=== PATIENT | female | born 1945 | race Caucasian/White ===

== ENCOUNTER → 2017-06-20 09:19 | Outpatient (CLI) | payer MEDICARE, OTHER ==
[2015-11-23 12:44] VITALS: BMI 19.1
[~2017-06-20 09:19] MED LIST: HYDROCODON-ACE1 EAC7 PO; XANAX0.25 MG PO
== END | disposition home or self-care (01) ==
LOC: D.MAMMO 09:19
DX: Z12.31 Encounter for screening mammogram for malignant neoplasm of breast (principal)

== ENCOUNTER 2017-07-06 09:53 | Outpatient (CLI) | payer MEDICARE, OTHER ==
[~2017-07-06] VITALS: Ht 160 cm; Wt 49.1 kg
[2017-07-06 11:13] VITALS: BP 133/79; Ht 160 cm; Wt 49.1 kg
== END 2017-07-06 11:29 | disposition home or self-care (01) ==
LOC: D.OPS 09:53
DX: M81.0 Age-related osteoporosis without current pathological fracture (principal)

== ENCOUNTER → 2017-07-12 14:10 | Outpatient (CLI) | payer MEDICARE, OTHER ==
[2017-07-06 11:13] VITALS: BMI 19.1
== END | disposition home or self-care (01) ==
LOC: D.MAMMO 09:30
DX: N63 Unspecified lump in breast (principal)

== ENCOUNTER 2018-01-09 09:37 | Outpatient (CLI) | payer MEDICARE, OTHER ==
[~2018-01-09] VITALS: Ht 160 cm; Wt 49.1 kg
[2018-01-09 10:00] VITALS: Ht 160 cm; Wt 49.1 kg
== END 2018-01-09 10:17 | disposition home or self-care (01) ==
LOC: D.OPS 09:37
DX: M81.0 Age-related osteoporosis without current pathological fracture (principal)

== ENCOUNTER 2018-05-06 08:59 | Observation (INO) | payer MEDICARE, OTHER ==
[~2018-05-06] VITALS: Ht 160 cm; Wt 49.0 kg
[2018-05-06 09:27] LABS: BASOPHILS 0.4 % (0-2); EOSINOPHILS 1.7 % (0-7); HEMATOCRIT 40.7 % (36.0-48.0); HEMOGLOBIN 13.4 g/dL (12-16); IMMATURE GRANULOCYTES 0.3 % (0-5); LYMPHOCYTES 23.9 % (15-50); MCH 32.9 pg (26.0-34.0); MCHC 32.9 g/dL (31.0-37.0); MEAN PLATELET VOLUME 10.3 fL (7.4-10.4); MONOCYTES 7.5 % (2-11); NEUTROPHILS 66.2 % (40-80); PLATELET COUNT 266 10x3/uL (130-400); RBC 4.07 10x6/uL (4.00-5.40); RDW 13.9 % (11.5-14.5)
[2018-05-06 09:40] LABS: ALBUMIN 3.7 g/dL (3.4-5.0); ANION GAP 12.3 mmol/L (8-16); BILIRUBIN - TOTAL 0.28 mg/dL (0.2-1.3); CALCIUM 8.9 mg/dL (8.5-10.1); CARBON DIOXIDE 30.6 mmol/L (21.0-32.0); CREATININE - SERUM 0.9 mg/dL (0.6-1.3); POTASSIUM - SERUM 3.9 mmol/L (3.5-5.1); PROTEIN - SERUM 7.7 g/dL (6.4-8.2)
[2018-05-06 09:44] LABS: APPEARANCE CLEAR (CLEAR); BILIRUBIN NEGATIVE (NEGATIVE); COLOR YELLOW (YELLOW); GLUCOSE NEGATIVE (NEGATIVE); KETONE NEGATIVE (NEGATIVE); NITRITE NEGATIVE (NEGATIVE); PROTEIN NEGATIVE (NEGATIVE); UROBILINOGEN NORMAL (NORMAL)
[2018-05-06 11:00] VITALS: BP 141/78
[2018-05-06 12:49] VITALS: BP 143/78
[2018-05-06 13:56] VITALS: BP 132/49; BMI 19.1
[2018-05-06 17:13] VITALS: BP 132/49
[2018-05-06 22:51] VITALS: BP 99/36
[2018-05-07 05:19] VITALS: BP 116/49
[2018-05-07 06:49] LABS: ALKALINE PHOSPHATASE 80 U/L (46-116); ALT (SGPT) 30 U/L (10-68); BILIRUBIN - TOTAL 0.31 mg/dL (0.2-1.3); CALC OSMOLALITY 281 mosm/kg (275-300); CARBON DIOXIDE 23.6 mmol/L (21.0-32.0); CHLORIDE - SERUM 112 mmol/L (98-107); CREATININE - SERUM 0.8 mg/dL (0.6-1.3); GLUCOSE 79 mg/dL (74-106); LIPASE 183 U/L (73-393); POTASSIUM - SERUM 3.7 mmol/L (3.5-5.1); SODIUM 143 mmol/L (136-145); UREA NITROGEN 6 mg/dL (7-18); eGFR NON AFRICAN AMERICAN 75 mL/min (90-120)
[2018-05-07 06:50] LABS: ALBUMIN 2.6 g/dL (3.4-5.0); AMYLASE - SERUM 75 U/L (25-115); PROTEIN - SERUM 5.3 g/dL (6.4-8.2)
[2018-05-07 08:36] VITALS: BP 147/57
[2018-05-07 09:33] LABS: BASOPHILS 0.6 % (0-2); EOSINOPHILS 2.8 % (0-7); IMMATURE GRANULOCYTES 0.3 % (0-5); LYMPHOCYTES 36.5 % (15-50); MCH 32.4 pg (26.0-34.0); MCHC 32.1 g/dL (31.0-37.0); MCV 100.9 fL (80.0-100.0); MEAN PLATELET VOLUME 10.7 fL (7.4-10.4); MONOCYTES 9.2 % (2-11); NEUTROPHILS 50.6 % (40-80); RDW 13.9 % (11.5-14.5)
[2018-05-07 09:37] LABS: HEMATOCRIT 32.1 % (36.0-48.0); PLATELET COUNT 198 10x3/uL (130-400); RBC 3.18 10x6/uL (4.00-5.40); WBC 7.2 10x3/uL (4.8-10.8)
[2018-05-07 09:38] LABS: HEMOGLOBIN 10.3 g/dL (12-16)
[2018-05-07 09:41] LABS: CHOL - HDL RATIO 5.1 ratio (2.3-4.1); LDL-HDL RATIO 3.4 ratio (1.5-3.5)
[2018-05-07 10:29] VITALS: Ht 160 cm; Wt 49.0 kg
[2018-05-07 12:24] VITALS: BP 119/50
[2018-05-07] MEDS ORDERED: ZOFRAN ODT4 MG/UDTAB PO (12:59)
[2018-05-07 16:14] VITALS: BP 123/40
== END 2018-05-07 18:59 | disposition home or self-care (01) ==
LOC: D.ER 08:59 → D.EDHOLD 11:51 → D.MS 11:51 → OBSVTIME 11:52 → D.MS 13:36
PROVIDERS: Family Medicine
DX: K85.90 Acute pancreatitis without necrosis or infection, unspecified (principal); F41.9 Anxiety disorder, unspecified; Z85.828 Personal history of other malignant neoplasm of skin; E86.0 Dehydration; R10.9 Unspecified abdominal pain; F17.203 Nicotine dependence unspecified, with withdrawal

== ENCOUNTER 2018-07-19 11:18 | Outpatient (CLI) | payer MEDICARE, OTHER ==
[~2018-07-19] VITALS: Ht 160 cm; Wt 50.0 kg
[~2018-07-19 11:18] MED LIST changes: +ZOFRAN ODT4 MG/UDTAB PO
[2018-07-19 12:25] VITALS: BP 110/68; Ht 160 cm; Wt 50.0 kg
== END 2018-07-19 12:15 | disposition home or self-care (01) ==
LOC: D.OPS 11:18
DX: M81.0 Age-related osteoporosis without current pathological fracture (principal); Z01.812 Encounter for preprocedural laboratory examination

== ENCOUNTER 2019-04-09 13:23 | Inpatient (IN) | payer MEDICARE, OTHER ==
[~2019-04-09] VITALS: Ht 160 cm; Wt 47.2 kg
[2019-04-09] MEDS ORDERED: CALCIUM 250+D T1 TAB PO (13:45)
[2019-04-09 13:46] VITALS: BMI 18.4
[2019-04-09 14:17] LABS: BASOPHILS 0.4 % (0-2); EOSINOPHILS 2.2 % (0-7); HEMATOCRIT 38.3 % (36.0-48.0); HEMOGLOBIN 12.8 g/dL (12-16); IMMATURE GRANULOCYTES 0.4 % (0-5); LYMPHOCYTES 23.2 % (15-50); MCH 32.7 pg (26.0-34.0); MCHC 33.4 g/dL (31.0-37.0); MCV 97.7 fL (80.0-100.0); MEAN PLATELET VOLUME 9.6 fL (7.4-10.4); MONOCYTES 10.3 % (2-11); NEUTROPHILS 63.5 % (40-80); RBC 3.92 10x6/uL (4.00-5.40); RDW 14.2 % (11.5-14.5); WBC 9.8 10x3/uL (4.8-10.8)
[2019-04-09 14:34] LABS: ALBUMIN 3.7 g/dL (3.4-5.0); ANION GAP 11.8 mmol/L (8-16); BILIRUBIN - TOTAL 0.22 mg/dL (0.2-1.3); CALCIUM 9.7 mg/dL (8.5-10.1); CARBON DIOXIDE 30.7 mmol/L (21.0-32.0); CREATININE - SERUM 0.9 mg/dL (0.6-1.3); POTASSIUM - SERUM 4.5 mmol/L (3.5-5.1); PROTEIN - SERUM 7.8 g/dL (6.4-8.2)
[2019-04-09 15:01] LABS: PLATELET COUNT 348 10x3/uL (130-400)
[2019-04-09 21:01] VITALS: BP 120/58
[2019-04-10 00:48] VITALS: BP 100/56
[2019-04-10 05:25] VITALS: BP 110/41
[2019-04-10 06:15] LABS: BASOPHILS 0.4 % (0-2); EOSINOPHILS 4.2 % (0-7); HEMATOCRIT 32.6 % (36.0-48.0); HEMOGLOBIN 10.8 g/dL (12-16); IMMATURE GRANULOCYTES 0.5 % (0-5); LYMPHOCYTES 29.6 % (15-50); MCH 32.3 pg (26.0-34.0); MCHC 33.1 g/dL (31.0-37.0); MCV 97.6 fL (80.0-100.0); MEAN PLATELET VOLUME 9.6 fL (7.4-10.4); MONOCYTES 10.7 % (2-11); NEUTROPHILS 54.6 % (40-80); PLATELET COUNT 299 10x3/uL (130-400); RBC 3.34 10x6/uL (4.00-5.40); RDW 14.3 % (11.5-14.5); WBC 7.6 10x3/uL (4.8-10.8)
[2019-04-10 06:28] LABS: ANION GAP 13.4 mmol/L (8-16); CALCIUM 8.1 mg/dL (8.5-10.1); CARBON DIOXIDE 25.5 mmol/L (21.0-32.0); CREATININE - SERUM 0.9 mg/dL (0.6-1.3); MAGNESIUM - SERUM 1.8 mg/dL (1.8-2.4); PHOSPHOROUS 3.1 mg/dL (2.5-4.9); POTASSIUM - SERUM 3.9 mmol/L (3.5-5.1)
[2019-04-10 09:19] VITALS: BP 114/47
[2019-04-10 12:56] VITALS: BP 127/51
[2019-04-10 13:32] VITALS: Ht 160 cm; Wt 47.2 kg
[2019-04-10 18:33] VITALS: BP 125/55
[2019-04-10 21:50] VITALS: BP 125/50
[2019-04-11 01:25] VITALS: BP 134/54
[2019-04-11 05:29] VITALS: BP 120/64
[2019-04-11 06:42] LABS: BASOPHILS 0.4 % (0-2); EOSINOPHILS 3.2 % (0-7); HEMATOCRIT 31.3 % (36.0-48.0); HEMOGLOBIN 10.3 g/dL (12-16); IMMATURE GRANULOCYTES 0.4 % (0-5); LYMPHOCYTES 25.6 % (15-50); MCH 32.3 pg (26.0-34.0); MCHC 32.9 g/dL (31.0-37.0); MCV 98.1 fL (80.0-100.0); MEAN PLATELET VOLUME 9.5 fL (7.4-10.4); MONOCYTES 10.7 % (2-11); NEUTROPHILS 59.7 % (40-80); PLATELET COUNT 267 10x3/uL (130-400); RBC 3.19 10x6/uL (4.00-5.40); RDW 14.1 % (11.5-14.5); WBC 7.9 10x3/uL (4.8-10.8)
[2019-04-11 07:00] LABS: ANION GAP 11.2 mmol/L (8-16); CARBON DIOXIDE 25.7 mmol/L (21.0-32.0); CREATININE - SERUM 0.8 mg/dL (0.6-1.3); PHOSPHOROUS 2.6 mg/dL (2.5-4.9); POTASSIUM - SERUM 3.9 mmol/L (3.5-5.1)
[2019-04-11 09:11] VITALS: BP 139/60
[2019-04-11 12:56] VITALS: BP 187/63
[2019-04-11 16:45] VITALS: BP 129/57
[2019-04-11 21:22] VITALS: BP 133/64
[2019-04-12 01:15] VITALS: BP 126/51
[2019-04-12 04:50] LABS: BASOPHILS 0.2 % (0-2); EOSINOPHILS 1.9 % (0-7); HEMATOCRIT 29.4 % (36.0-48.0); HEMOGLOBIN 9.7 g/dL (12-16); IMMATURE GRANULOCYTES 0.5 % (0-5); LYMPHOCYTES 24.7 % (15-50); MCH 31.9 pg (26.0-34.0); MCV 96.7 fL (80.0-100.0); MEAN PLATELET VOLUME 8.9 fL (7.4-10.4); MONOCYTES 9.7 % (2-11); PLATELET COUNT 221 10x3/uL (130-400); RBC 3.04 10x6/uL (4.00-5.40); RDW 14.1 % (11.5-14.5); WBC 8.8 10x3/uL (4.8-10.8)
[2019-04-12 05:06] LABS: CALCIUM 8.2 mg/dL (8.5-10.1); CARBON DIOXIDE 24.8 mmol/L (21.0-32.0); CREATININE - SERUM 0.8 mg/dL (0.6-1.3); MAGNESIUM - SERUM 1.9 mg/dL (1.8-2.4); PHOSPHOROUS 2.8 mg/dL (2.5-4.9); POTASSIUM - SERUM 3.8 mmol/L (3.5-5.1)
[2019-04-12 06:04] VITALS: BP 140/60
[2019-04-12 08:40] VITALS: BP 150/63
--- NOTE | 2019-04-12 09:24 | MORECARE ---
CASE MANAGEMENT DISCHARGE SUMMARY PATIENT: TATIANA RAMIREZ UNIT: [id number] ADM DATE: 04/09/19 AGE: 73 : 47 SEX: F ROOM/BED: D.2215 AUTHOR: ERICA RIOS PHYSICIAN: REFERRING PHYSICIAN: LYN BURCH DO DATE OF SERVICE: 04/12/19 Discharge Plan Patient Name: TATIANA RAMIREZ Facility: [facility]:[place] : 1945 Planned Disposition: Home Anticipated Discharge Date: Discharge Date: Expected LOS: Initial Reviewer: [email or web address] Initial Review Date: 04/12/2019 Generated: 04/12/19 10:24 am Comments DCP- Discharge Planning Updated by [email or web address]: Rosario Borden on 04/12/19 8:[address] Patient Name: TATIANA RAMIREZ Admission Status: Elective Accout number: [id number] Admission Date: 04-09-2019 : 1945 Admission Diagnosis:DVTRCLI OF INTEST, PART UNSP, W PERF AND ABSCESS W/O BL Attending: LYN BURCH Current LOS: 3 Anticipated DC Date: Planned Disposition: Home Primary Insurance: MEDICARE A & B Discharge Planning Comments: CM MET WITH PATIENT ABOUT DC NEEDS. DENIES ANY NEEDS AT THIS TIME. CM WILL FOLLOW AND ASSIST NEEDED. Automotive Manufacturer: Rosario Borden DCPIA - Discharge Planning Initial Assessment Updated by [email or web address]: Rosario Borden on 04/12/19 9:18 am * Is the patient Alert and Oriented? Yes * PCP JAZZY * Pharm[facility] [address] * Preadmission Environment Home with Family * ADLs Independent * Equipment None * List name and contact numbers for known caregivers / representatives who currently or will assist patient after discharge: GENE, , * Additional services required to return to the preadmission environment? No * Can the patient safely return to the preadmission environment? Yes * Has this patient been hospitalized within the prior 30 days at any hospital? No Patient Name: TATIANA RAMIREZ Page [id number] at 0924 All edits/amendments must be made on the electronic document DICTATION DATE: 04/12/19923 HOSIERY PAIRER: RAJESH 04/12/19923 RPT#: [id number] DC DATE: STATUS: ADM IN [facility] [address] [place] [address] END OF REPORT
[2019-04-12] MEDS ORDERED: Nicoderm [PBKC] TRANSDERM (10:31)
[2019-04-12] MEDS ORDERED: PROTONIX40 MG PO (10:32)
[2019-04-12] MEDS ORDERED: FLORAJEN3 CAPS460 MG PO (10:32)
[2019-04-12] MEDS ORDERED: ONDANSETRON8 MG/TAB PO (10:32)
[2019-04-12] MEDS ORDERED: FLAGYL500 MG PO (10:33)
[2019-04-12] MEDS ORDERED: LEVOFLOXACIN500 MG PO (10:34)
--- NOTE | 2019-04-12 16:34 | MORECARE ---
CASE MANAGEMENT DISCHARGE SUMMARY PATIENT: TATIANA RAMIREZ UNIT: [id number] ADM DATE: 04/09/19 AGE: 73 : 46 SEX: F ROOM/BED: D.2215 AUTHOR: GABRIELDOC PHYSICIAN: REFERRING PHYSICIAN: LYN BURCH DO DATE OF SERVICE: 04/12/19 Discharge Plan Patient Name: TATIANA RAMIREZ Facility: [facility]:[place] : 1945 Planned Disposition: Home Anticipated Discharge Date: Discharge Date: 04/12/2019 Expected LOS: Initial Reviewer: [email or web address] Initial Review Date: 04/12/2019 Generated: 04/12/19 5:34 pm DCP- Discharge Planning Updated by [email or web address]: Rosario Borden on 04/12/19 8:[address] Patient Name: TATIANA RAMIREZ Admission Status: Elective Accout number: [id number] Admission Date: 04-09-2019 : 1945 Admission Diagnosis:DVTRCLI OF INTEST, PART UNSP, W PERF AND ABSCESS W/O BL Attending: LYN BURCH Current LOS: 3 Anticipated DC Date: Planned Disposition: Home Primary Insurance: MEDICARE A & B Discharge Planning Comments: CM MET WITH PATIENT ABOUT DC NEEDS. DENIES ANY NEEDS AT THIS TIME. CM WILL FOLLOW AND ASSIST NEEDED. Wireless Cellular Technician: Rosario Borden DCPIA - Discharge Planning Initial Assessment Updated by [email or web address]: Rosario Borden on 04/12/19 9:18 am * Is the patient Alert and Oriented? Yes * PCP JAZZY * Pharm[facility] [place] [address] * Preadmission Environment Home with Family * ADLs Independent * Equipment None * List name and contact numbers for known caregivers / representatives who currently or will assist patient after discharge: GENE, , * Additional services required to return to the preadmission environment? No * Can the patient safely return to the preadmission environment? Yes * Has this patient been hospitalized within the prior 30 days at any hospital? No Coverage Notice Reviewer: [id number] Kelli Borden Notice Issued Date-Time: 04/12/2019 11:43 Notice Type: IM Discharge Notice Notice Delivered To: Patient Relationship to Patient: Slackman Name: Delivery Method: HAND - Hand Delivered Jaelyn Days: Prior Verbal Notification: Recipient Understood Notice: Yes Recipient Signature: Yes Med Rec Note Co-signed by Attending: Coverage Notice Comment: Last DP export: 04/12/19 8:24 a Patient Name: TATIANA RAMIREZ Page [id number] at 1634 All edits/amendments must be made on the electronic document DICTATION DATE: 04/12/19 1633 GOLD STAMPER: RAJESH 04/12/19 1633 RPT#: [id number] DC DATE:04/12/19 STATUS: [facility] [address] [place] [address] END OF REPORT
== END 2019-04-12 13:00 | disposition home or self-care (01) | DRG 392 ==
LOC: D.OPS 13:23 → D.MS 13:24
PROVIDERS: Family Medicine; ADMIT Family Medicine; ATTEND Family Medicine
DX: K57.80 Diverticulitis of intestine, part unspecified, with perforation and abscess without bleeding (principal); F17.213 Nicotine dependence, cigarettes, with withdrawal; E86.0 Dehydration

== ENCOUNTER 2019-06-27 13:26 | Outpatient (CLI) | payer MEDICARE, OTHER ==
[~2019-06-27] VITALS: Ht 160 cm; Wt 45.9 kg
[~2019-06-27 13:26] MED LIST changes: +CALCIUM 250+D T1 TAB PO; +FLAGYL500 MG PO; +FLORAJEN3 CAPS460 MG PO; +LEVOFLOXACIN500 MG PO; +Nicoderm [PBKC] TRANSDERM; +ONDANSETRON8 MG/TAB PO; +PROTONIX40 MG PO
[2019-06-27 13:50] VITALS: BP 147/71; Ht 160 cm; Wt 45.9 kg
== END 2019-06-27 14:01 | disposition home or self-care (01) ==
LOC: D.OPS 13:26
PROVIDERS: ATTEND Emergency Medicine
DX: M81.0 Age-related osteoporosis without current pathological fracture (principal)

== ENCOUNTER 2020-03-11 11:25 | Outpatient (CLI) | payer MEDICARE, OTHER ==
[~2020-03-11] VITALS: Ht 160 cm; Wt 47.7 kg
[2020-03-11 11:40] VITALS: BP 129/61; Ht 160 cm; Wt 47.7 kg
--- NOTE | 2020-03-11 12:15 | NUR ---
DISCHARGE INSTRUCTIONS PROVIDED.
== END 2020-03-11 11:50 | disposition home or self-care (01) ==
LOC: D.OPS 11:25
PROVIDERS: ATTEND Emergency Medicine
DX: M81.0 Age-related osteoporosis without current pathological fracture (principal); Z12.31 Encounter for screening mammogram for malignant neoplasm of breast

== ENCOUNTER 2021-03-30 13:35 | Outpatient (CLI) | payer MEDICARE, OTHER ==
[~2021-03-30] VITALS: Ht 160 cm; Wt 47.3 kg
[2021-03-30 13:52] VITALS: BP 148/75; Ht 160 cm; Wt 47.3 kg
== END 2021-03-30 14:06 | disposition home or self-care (01) ==
LOC: D.OPS 13:35
PROVIDERS: ATTEND Emergency Medicine
DX: M81.0 Age-related osteoporosis without current pathological fracture (principal); E78.00 Pure hypercholesterolemia, unspecified